=== PATIENT | female | born 1955 | race Caucasian/White ===

== ENCOUNTER 2021-01-31 17:55 | Emergency (ER) | payer MEDICARE, OTHER ==
[~2021-01-31] VITALS: Ht 165.1 cm; Wt 99.3 kg
[2021-01-31] MEDS ORDERED: Lipitor20 MG PO (18:10)
[2021-01-31] MEDS ORDERED: LEVSOD75 PO (18:10)
== END 2021-01-31 19:14 | disposition home or self-care (01) ==
LOC: ER 17:55
DX: S61.411A Laceration without foreign body of right hand, initial encounter (principal); Z23 Encounter for immunization; Z88.0 Allergy status to penicillin; Z88.1 Allergy status to other antibiotic agents; Z79.899 Other long term (current) drug therapy; W26.0XXA Contact with knife, initial encounter
CPT/HCPCS: 12001; 90471; 90714; 99282-25